=== PATIENT | female | born 1975 | race Hispanic/Latino ===

== ENCOUNTER 2018-03-05 21:21 | Emergency (ER) | payer OTHER ==
[2018-03-05] MEDS ORDERED: Sodium Chloride 0.9% 1,000 ML IV ONE (21:38)
--- NOTE | 2018-03-05 21:42 | C.PDOC ---
History Of Present Illness 42 year old female with PMHx of anxiety presents to the ED BIBA for alcohol intoxication and medication ingestion. Denies any specific complaints. Reports she took 31 pills of Clonazepam 1mg 3 hours ago. Denies any homicidal ideation, visual or auditory hallucinations. <Stanley Tillman - Last Filed: 03/05/18 23:32> History Per: Patient, EMS History/Exam Limitations: intoxication Onset/Duration Of Symptoms: Days Current Symptoms Are (Timing): Still Present Suicide/Self Injury Attempted (Context): Ingestion Modifying Factor(s): Alcohol Associated Symptoms: Anxiety, Depression. denies: Suicidal Thoughts, Suicidal Plan Additional History Per: EMS <Stanley Tillman - Last Filed: 03/05/18 23:32> <Cuong Hicks - Last Filed: 03/06/18 06:30> <Олег Barbosa - Last Filed: 03/06/18 16:36> Chief Complaint (Nursing): Psychiatric Evaluation Past Medical History Reviewed: Historical Data, Nursing Documentation, Vital Signs Vital Signs: Last Vital Signs Temp 98.1 F 03/05/18 21:28 Pulse 98 H 03/05/18 21:28 Resp 24 03/05/18 21:28 BP 110/70 03/05/18 21:28 Pulse Ox 99 03/05/18 21:28 - Medical History PMH: Anxiety, Depression Denies: Diabetes, Hepatitis, HIV, HTN, Seizures, Sexually Transmitted Disease Other Surgeries: Hx of surgeries Family History: States: No Known Family Hx - Social History Hx Alcohol Use: Yes Hx Substance Use: Yes - Immunization History Hx Tetanus Toxoid Vaccination: No Hx Influenza Vaccination: No Hx Pneumococcal Vaccination: No <Stanley Tillman - Last Filed: 03/05/18 23:32> Vital Signs: Last Vital Signs Temp 98.1 F 03/05/18 21:28 Pulse 102 H 03/06/18 00:30 Resp 20 03/06/18 00:30 BP 109/82 03/06/18 00:30 Pulse Ox 98 03/06/18 00:30 <Cuong Hicks - Last Filed: 03/06/18 06:30> Vital Signs: Last Vital Signs Temp 98.0 F 03/06/18 06:56 Pulse 94 H 03/06/18 06:56 Resp 19 03/06/18 06:56 BP 121/80 03/06/18 06:56 Pulse Ox 95 03/06/18 06:56 <Олег Barbosa - Last Filed: 03/06/18 16:36> Review Of Systems Except As Marked, All Systems Reviewed And Found Negative. Gastrointestinal: Negative for: Nausea, Vomiting, Abdominal Pain Psych: Positive for: Anxiety, Depression, Suicidal ideation <Stanley Tillman - Last Filed: 03/05/18 23:32> Physical Exam - Physical Exam Appears: Non-toxic, Other (maudlin, alcohol on breath) Skin: Warm, Dry, No Rash Head: Atraumatic, Normacephalic Eye(s): bilateral: Normal Inspection Nose: Normal Oral Mucosa: Moist Neck: Normal ROM, Supple Chest: Symmetrical Cardiovascular: Rhythm Regular Respiratory: Normal Breath Sounds, No Rales, No Rhonchi, No Wheezing Gastrointestinal/Abdominal: Soft, No Tenderness Extremity: Bilateral: Atraumatic, Normal Color And Temperature, Normal ROM Neurological/Psych: Oriented x3, Normal Speech Gait: Steady <Stanley Tillman - Last Filed: 03/05/18 23:32> ED Course And Treatment - Laboratory Results Result Diagrams: 03/05/18 21:47 03/05/18 21:47 Lab Interpretation: Normal (ETOH 222 H, tox + THC (neg for benzo's) UA neg, preg neg.) Urine POC: Negative ECG: Interpreted By Me ECG Rhythm: Sinus Rhythm ECG Interpretation: Normal Rate From EC O2 Sat by Pulse Oximetry: 99 (RA) Pulse Ox Interpretation: Normal Reevaluation Time: 23:14 Reassessment Condition: Improved - Physician Consult Information Outcome Of Conversation: 2315: d/w Crisis, Medically Cleared for eval <Stanley Tillman - Last Filed: 03/05/18 23:32> - Laboratory Results Result Diagrams: 03/05/18 21:47 03/05/18 21:47 - Radiology CXR: Interpreted by Me, Viewed By Me CXR Interpretation: Yes: No Acute Disease, Other (nomal chest film). No: Infiltrates <Cuong Hicks - Last Filed: 03/06/18 06:30> - Laboratory Results Result Diagrams: 03/05/18 21:47 03/05/18 21:47 <Олег Barbosa - Last Filed: 03/06/18 16:36> Medical Decision Making Medical Decision Making: Plan - IV fluids - UA - HCG - Bloodwork No prescription under the patient's name on [place] [facility]. 2200: re-eval, pt ambulated to bedside commode without assistance. speaking clearly. 2300: sitting up, speaking with pressured speech and persistent maudlin affect w multiple ED personnel. tox neg for benzo's, suspect pt did NOT take 31 tabs of Klonopin 1 mg tabs (perhaps none) ASA/Tylenol levels neg Medically cleared for psych, pending Crisis Eval 0000: conversing with Crisis [place] medically stable no s/s of benzo OD pending Crisis dispo Signed over to overnight MD <Stanley Tillman - Last Filed: 03/05/18 23:32> Medical Decision Making: Received signout from Dr. Hicks: 42yr old F w/ hx of suspected clonazepam OD now medically clear pending eval by [facility] screener for SI. 1635 cleared by [facility] screeners: Pt clear for d/c home w/ [facility] f/u. Pt in NAD, given f/u and return indications, Pt agreeable. <Олег Barbosa - Last Filed: 03/06/18 16:36> Disposition - Disposition Disposition Time: 00:00 <Stanley Tillman - Last Filed: 03/05/18 23:32> <Cuong Hicks - Last Filed: 03/06/18 06:30> - Disposition Disposition Time: 16:36 <Олег Barbosa - Last Filed: 03/06/18 16:36> - Disposition Condition: GOOD Forms: [employer] (Maltese) - Clinical Impression Clinical Impression: Alcohol abuse, Depression - Scribe Statement The provider has reviewed the documentation as recorded by the Scribe Marysol Kohler All medical record entries made by the Scribe were at my direction and personally dictated by me. I have reviewed the chart and agree that the record accurately reflects my personal performance of the history, physical exam, medical decision making, and the department course for this patient. I have also personally directed, reviewed, and agree with the discharge instructions and disposition. <Stanley Tillman - Last Filed: 03/05/18 23:32> Physician Patient Turnover Patient Signed Over To: Hicks,Cuong R Handoff Comments: please dispo per Crisis Eval <Stanley Tillman E - Last Filed: 03/05/18 23:32> Patient Signed Over To: Олег Barbosa Handoff Comments: Patient agitated last night given Haldol. Patient is awaiting [facility] screener <Cuong Hicks - Last Filed: 03/06/18 06:30>
[2018-03-05] MEDS ORDERED: Sodium Chloride 0.9% 1,000 ML ONE (21:49)
[2018-03-05 21:52] LABS: BASO # 0.1 K/uL (0.0-0.2); BASO % 0.9 % (0.0-2.0); EOS % 0.3 % (0.0-4.0); HEMOGLOBIN 14.6 g/dL (11.0-16.0); LYMPH # 3.5 K/uL (1.0-4.3); LYMPH % 29.3 % (20.0-40.0); MEAN CELL VOLUME 91.7 fL (81.0-99.0); MEAN CORPUSCULAR HEMOGLOBIN 31.2 pg (27.0-31.0); MEAN PLATELET VOLUME 8.9 fL (7.2-11.7); MONO # 0.5 K/uL (0.0-0.8); MONO % 4.3 % (0.0-10.0); NEUT # 7.7 K/uL (1.8-7.0); NEUT % 65.2 % (50.0-75.0); NRBC % 0.1 % (0.0-2.0); RBC 4.67 Mil/uL (3.80-5.20); WHITE BLOOD COUNT 11.8 K/uL (4.8-10.8)
[2018-03-05 22:04] LABS: ACETAMINOPHEN < 10.0 ug/mL (10.0-30.0); SALICYLATE < 1.0 mg/dL 1
[2018-03-05 22:06] LABS: ALB/GLOB RATIO 1.4 (1.0-2.1); ALBUMIN 4.8 g/dL (3.5-5.0); ALT/SGPT 20 U/L (9-52); AST/SGOT 30 U/L (14-36); BLOOD UREA NITROGEN 9 mg/dL (7-17); CALCIUM 9.3 mg/dl (8.6-10.4); GFR NON-AFRICAN AMERICAN > 60
[2018-03-05 22:24] LABS: HCG,QUALITATIVE URINE NEGATIVE (NEGATIVE)
[2018-03-05 22:25] LABS: URINE BACTERIA RARE (<OCC); URINE BILIRUBIN NEGATIVE (NEGATIVE); URINE BLOOD NEGATIVE (NEGATIVE); URINE CLARITY Clear (Clear); URINE COLOR Colorless (YELLOW); URINE GLUCOSE (UA) NORMAL (Normal); URINE LEUKOCYTE ESTERASE NEG Leu/uL (Negative); URINE PROTEIN NEGATIVE (NEGATIVE); URINE UROBILINOGEN NORMAL mg/dL (0.2-1.0)
[2018-03-05 22:44] LABS: BARBITURATES, UR NEGATIVE (NEGATIVE); BENZODIAZEPINES, UR NEGATIVE (NEGATIVE); OPIATES, UR NEGATIVE (NEGATIVE); PHENCYCLIDINE, UR NEGATIVE (NEGATIVE)
--- NOTE | 2018-03-06 08:37 | RAD ---
HISTORY: for psych eval. COMPARISON: No prior. TECHNIQUE: Chest PA and lateral FINDINGS: LUNGS: No focal consolidation. 11 mm nodular density projects over the left lower lobe, possibly nipple shadow. Please note that chest x-ray has limited sensitivity for the detection of pulmonary masses. PLEURA: No significant pleural effusion identified. No definite pneumothorax . CARDIOVASCULAR: The cardiomediastinal silhouette appears within normal limits of size. No atherosclerotic calcification present. OSSEOUS STRUCTURES: No acute osseous abnormality identified. VISUALIZED UPPER ABDOMEN: Unremarkable. OTHER FINDINGS: None. IMPRESSION: No focal consolidation. 11 mm nodular density projects over the left lower lobe possibly nipple shadow. Repeat study with nipple markers may be considered if indicated. Study marked for PA review.
[2018-03-06 15:14] VITALS: RESP 21
[2018-03-06 16:33] VITALS: BP 112/84; PULSE 103; TEMP 97.7; O2SAT 100
--- NOTE | 2018-03-09 20:42 | CARD ---
APPROVED REPORT Date of service: 03/05/2018 EKG Measurement Heart [id number] <Conclusion> Normal sinus rhythm Normal ECG
== END 2018-03-06 16:56 | disposition home or self-care (01) ==
LOC: C.ER 21:21
DX: F10.10 Alcohol abuse, uncomplicated (principal); Y90.7 Blood alcohol level of 200-239 mg/100 ml; F32.9 Major depressive disorder, single episode, unspecified
CPT/HCPCS: 71046; 80053; 80320; 80324; 80329; 80345; 80346; 80349; 80353; 80358; 80361; 81001; 82948; 83735; 83992; 84100; 84703; 85025; 93005; 96360; 96372; 99285; J1630; J7030